=== PATIENT | female | born 1985 | race Native Hawaiian/Other Pacific Islander ===

== ENCOUNTER → 2019-02-12 08:19 | Outpatient (CLI) | payer OTHER | END | disposition home or self-care (01) | LOC: AMB 08:19 | DX: Z04.1 Encounter for examination and observation following transport accident (principal); H57.13 Ocular pain, bilateral; M79.601 Pain in right arm; M25.512 Pain in left shoulder; V89.2XXA Person injured in unspecified motor-vehicle accident, traffic, initial encounter; Y92.413 State road as the place of occurrence of the external cause; Y93.89 Activity, other specified ==